=== PATIENT | female | born 1985 | race Caucasian/White ===

== ENCOUNTER 2018-08-28 17:31 | Emergency (ER) | payer BC, SELFPAY ==
[2018-08-28 17:32] VITALS: BP 129/77; PULSE 109; RESP 17; TEMP 36.8; O2SAT 97; BMI 37.1
--- NOTE | 2018-08-28 17:41 | ED.VISSUMM ---
- ER Visit Summary Date of Service: 08/28/18 Chief Complaint: Fever, chills, myalgias History of Present Illness: The patient is a 32 F presents to the emergency department fever, chills, myalgias. Patient symptoms began 48 hours ago. States she started with mild runny nose. Since then, she has had worsening fevers, chills, myalgias. She describes diffuse body aches. She had a scant nonproductive cough. She states that she has had some increasing nasal drainage, ear pressure and facial fullness. She has been taking ibuprofen which controls the fever, but then it comes back. Patient is otherwise healthy. She takes no daily medications. She has no history of immunosuppression. She does smoke. Physical Examination: Vital signs reviewed General: Well-nourished, well-developed Head: Normocephalic, atraumatic Eyes: Pupils equal and reactive, extraocular muscles intact Neck, supple, no lymphadenopathy Heart: Regular rate and rhythm Respiratory: No distress, clear bilaterally Abdomen: Soft, nontender, nondistended, no peritoneal signs Back: Nontender Extremities: Nontender, no edema, no cords Skin: Normal color no rash Neuro: Alert and oriented, no focal or lateralizing deficits Test Results: [] Emergency Department Course and Treatment: The patient has symptoms that are consistent with influenza. She was not hypoxic. She was given fluids and Tylenol. Rapid flu was obtained and was positive. Chest x-ray shows no evidence of focal infiltrate. At this time, I do feel the patient is safe for outpatient therapy. She is within the window for treatment with Tamiflu. I did discuss this with the patient she was agreeable. She will be started on Tamiflu. She was counseled on supportive care. At this time, I do feel that she is safe for discharge. She will return with any worsening symptoms. Treatment Plan: [] Disposition: [] Impression: Influenza This note was generated with Chat& (ChatAnd) dictation software. It may contain incorrect words, spelling, and punctuation that were not noted in review of the chart prior to signing ED Disposition - Plan for ED Patient: Chief Complaint: Fever Instructions: ED Flu Prescriptions: Oseltamivir Phosphate [Tamiflu] 75 mg PO BID #10 cap Referrals: Román Ling MD [Primary Care Provider] -
[2018-08-28] MEDS: Acetaminophen 500 MG Tablet 1000 MG PO (18:03)
[2018-08-28] MEDS: 0.9% Normal Saline 1,000 ML 1000 ML IV (18:04)
--- NOTE | 2018-08-28 18:16 | RAD_ITS ---
STUDY: X-RAY CHEST REASON FOR EXAM: Female, 32 years old. Fever TECHNIQUE: Frontal and lateral views of the chest. COMPARISON: None. FINDINGS: The lungs are clear and expanded. There is no demonstrated pleural abnormality. Normal size heart. Normal mediastinum and kymberly. Normal visualized pulmonary arteries. Normal visualized aortic arch and descending thoracic aorta. Normal visualized thoracic spine. Normal visualized ribs, clavicles, and shoulders. There is no demonstrated abnormality of the visualized soft tissue structures of the upper abdomen. RAD/Chest PA and Lateral IMPRESSION: Normal x-ray examination of the chest. Electronically Signed: Ken Holly MD at 19:23 EST , Service support ,
--- NOTE | 2018-08-28 18:16 | ED.RN ---
LAB CALLS WITH CRITICAL RESULT, FLU A POSITIVE, DR. RAMIREZ MADE AWARE.
[2018-08-28] MEDS: Oseltamivir Phosphate 75 MG Capsule PO (18:32)
[2018-08-28 18:58] VITALS: PULSE 88; RESP 14
--- OUTSIDE RECORDS SUMMARY | 2018-10-31 12:07 | XMS RPT_ITS ---
:1985 Author Organization [facility] Care Team Providers Name Role Phone HARLEEN FUCHS Attending Unavailable Brian Martin Attending Unavailable Harleen Fuchs Primary Care Unavailable PROBLEMS PROBLEMS No Problem Records FoundPROCEDURES PROCEDURES No Procedure Records FoundRESULTS RESULTS PROGRESS Observed: 08/31/2018 Status: COMPLETED Source: [facility] 11:48 AM [facility] REPOSITORY HNO ID: [id number] Author: Harleen Fuchs Service: (none) Author Type: Physician Type: Progress Notes Filed: 08/31/2018 11:55 AM Note Text: Patient presents with: Viral Syndrome HPI: Patient presents today for office visit for ER follow up. Nursing Notes: Marli Hutchinson LPN 08/31/2018 11:42 AM Signed HOSPITAL/ER FOLLOW UP: Reason for visit: fever, body aches Which facility: [facility] Date of visit: 08/28/18 Diagnosis: Influenza A Testing done: chest x-ray, rapid flu Treatment given: Tamiflu Current symptoms: congestion Has FMLA that needs completed for work. Off work 08/26/18 return to work 09/01/18. Was having fever and myalgias. Rapid flu was positive. Not feeling perfect but is much better now. No cough or shortness of breath. Has a lot of congestion and mild left ear pain. MEDICATIONS: Current Outpatient Prescriptions: fluticasone (FLONASE) 50 mcg/actuation nasal spray Use 1 [place] in each nostril once daily. cyclobenzaprine (FLEXERIL) 10 mg tablet Take 1 tablet by mouth three times daily as needed for Muscle Spasm. albuterol HFA (PROAIR HFA) 90 mcg/actuation inhaler Inhale 2 Puffs as instructed every 4 hours as needed for Wheezing/Shortness of Breath. ibuprofen (MOTRIN) 800 mg tablet Take 1 tablet by mouth every 8 hours as needed for Pain. Take with food. No current facility-administered medications for this visit. ALLERGIES: ALLERGIES No Known Allergies PAST MEDICAL HISTORY Diagnosis Date - Abnormal pap - HPV test positive - Migraines PAST SURGICAL HISTORY Procedure Laterality Date - LAPAROSCOPIC CHOLEYCYSTECTOMY Cholecystectomy, lap FAMILY HISTORY Problem Relation Age of Onset - Hypertension Father - Diabetes Maternal Grandmother Social History Marital status: Spouse name: Zia Years of education: Number of children: 2 Social History Main Topics Smoking status: Current Every Day Smoker Packs/day: 1.00 Years: 0.00 Types: Cigarettes Smokeless tobacco: Never Used Comment: has tried wellbutrin in the past Alcohol use: No Drug use: No Sexual activity: Yes Reviewed current medications, allergies, past medical history, surgical history, family history and social history today. REVIEW OF SYSTEMS All other reviewed and negative other than HPI. HEALTH MAINTENANCE: Reviewed health maintenance issues today and recommended the following in detail. VITALS: BP 118/62 Pulse 80 Temp 36.9 ?C (98.4 ?F) (Tympanic) Resp 18 Wt 102.5 kg (226 lb) BMI 35.93 kg/m? Last 4 Encounter Wt Readings: Date: Wt: 08/31/2018 102.5 kg (226 lb) 12/13/2016 102.1 kg (225 lb) 06/30/2016 101.2 kg (223 lb) 01/19/2016 98 kg (216 lb) PHYSICAL EXAMINATION: General appearance: Well appearing, alert, in no acute distress, well-hydrated, well nourished. Skin: Skin color, texture, turgor normal, no suspicious rashes or lesions Head: Normocephalic, no masses, lesions, tenderness or abnormalities Eyes: Anicteric sclera. Pupils are equally round and reactive to light. Extraocular movements are intact. Ears: External ears normal, canals clear Nose/Sinuses: Nares normal, septum midline, mucosa normal, no drainage or sinus tenderness Oropharynx: Lips, mucosa, and tongue normal, teeth and gums normal, oropharynx normal Neck: Supple, no adenopathy; Lungs: lungs clear to auscultation. No wheezing, rhonchi, rales Heart: RRR without murmur, gallop, or rubs. No ectopy Abdomen: Normal abdominal exam, Abdomen soft, non-tender. Bowel sounds normal. No masses, organomegaly Extremities: No deformities, edema, skin discoloration, clubbing or cyanosis. Good capillary refill. Musculoskeletal: No joint swelling, deformity, or tenderness ASSESSMENT/PLAN: 1. Influenza A - ICD9: 487.1, ICD10: J10.1 - finish tamiflu. discusssed annual flu shot. Red flags for re-assessment reviewed with patient in detail. - ok to return to work in am. Forms completed. Harleen Fuchs MD RTO i prn. CNOV Observed: 08/31/2018 Status: COMPLETED Source: [place] 11:00 AM [facility] RE[facility]ITORY [facility] INDIA DEWITT ([id number]) 1985 F Date Time Provider Department 08/31/18 11:00 AM HARLEEN FUCHS During your visit today, we recorded the following information about you: Temperature Pulse Respiration Blood pressure 98.4 degrees 80/minute 18/minute 118/62 Weight 102.5 kg Marli Hutchinson LPN 08/31/2018 11:42 AM Signed HOSPITAL/ER FOLLOW UP: Reason for visit: fever, body aches Which facility: [facility] Date of visit: 08/28/18 Diagnosis: Influenza A Testing done: chest x-ray, rapid flu Treatment given: Tamiflu Current symptoms: congestion Has FMLA that needs completed for work. Off work 08/26/18 return to work 09/01/18. Harleen Fuchs MD 08/31/2018 11:55 AM Signed Patient presents with: Viral Syndrome HPI: Patient presents today for office visit for ER follow up. Nursing Notes: Marli Hutchinson LPN 08/31/2018 11:42 AM Signed HOSPITAL/ER FOLLOW UP: Reason for visit: fever, body aches Which facility: [facility] Date of visit: 08/28/18 Diagnosis: Influenza A Testing done: chest x-ray, rapid flu Treatment given: Tamiflu Current symptoms: congestion Has FMLA that needs completed for work. Off work 08/26/18 return to work 09/01/18. Was having fever and myalgias. Rapid flu was positive. Not feeling perfect but is much better now. No cough or shortness of breath. Has a lot of congestion and mild left ear pain. MEDICATIONS: Current Outpatient Prescriptions: fluticasone (FLONASE) 50 mcg/actuation nasal spray Use 1 [place] in each nostril once daily. cyclobenzaprine (FLEXERIL) 10 mg tablet Take 1 tablet by mouth three times daily as needed for Muscle Spasm. albuterol HFA (PROAIR HFA) 90 mcg/actuation inhaler Inhale 2 Puffs as instructed every 4 hours as needed for Wheezing/Shortness of Breath. ibuprofen (MOTRIN) 800 mg tablet Take 1 tablet by mouth every 8 hours as needed for Pain. Take with food. No current facility-administered medications for this visit. ALLERGIES: ALLERGIES No Known Allergies PAST MEDICAL HISTORY Diagnosis Date - Abnormal pap - HPV test positive - Migraines PAST SURGICAL HISTORY Procedure Laterality Date - LAPAROSCOPIC CHOLEYCYSTECTOMY Cholecystectomy, lap FAMILY HISTORY Problem Relation Age of Onset - Hypertension Father - Diabetes Maternal Grandmother Social History Marital status: Spouse name: Zia Years of education: Number of children: 2 Social History Main Topics Smoking status: Current Every Day Smoker Packs/day: 1.00 Years: 0.00 Types: Cigarettes Smokeless tobacco: Never Used Comment: has tried wellbutrin in the past Alcohol use: No Drug use: No Sexual activity: Yes Reviewed current medications, allergies, past medical history, surgical history, family history and social history today. REVIEW OF SYSTEMS All other reviewed and negative other than HPI. HEALTH MAINTENANCE: Reviewed health maintenance issues today and recommended the following in detail. VITALS: BP 118/62 Pulse 80 Temp 36.9 ?C (98.4 ?F) (Tympanic) Resp 18 Wt 102.5 kg (226 lb) BMI 35.93 kg/m? Last 4 Encounter Wt Readings: Date: Wt: 08/31/2018 102.5 kg (226 lb) 12/13/2016 102.1 kg (225 lb) 06/30/2016 101.2 kg (223 lb) 01/19/2016 98 kg (216 lb) PHYSICAL EXAMINATION: General appearance: Well appearing, alert, in no acute distress, well-hydrated, well nourished. Skin: Skin color, texture, turgor normal, no suspicious rashes or lesions Head: Normocephalic, no masses, lesions, tenderness or abnormalities Eyes: Anicteric sclera. Pupils are equally round and reactive to light. Extraocular movements are intact. Ears: External ears normal, canals clear Nose/Sinuses: Nares normal, septum midline, mucosa normal, no drainage or sinus tenderness Oropharynx: Lips, mucosa, and tongue normal, teeth and gums normal, oropharynx normal Neck: Supple, no adenopathy; Lungs: lungs clear to auscultation. No wheezing, rhonchi, rales Heart: RRR without murmur, gallop, or rubs. No ectopy Abdomen: Normal abdominal exam, Abdomen soft, non-tender. Bowel sounds normal. No masses, organomegaly Extremities: No deformities, edema, skin discoloration, clubbing or cyanosis. Good capillary refill. Musculoskeletal: No joint swelling, deformity, or tenderness ASSESSMENT/PLAN: 1. Influenza A - ICD9: 487.1, ICD10: J10.1 - finish tamiflu. discusssed annual flu shot. Red flags for re-assessment reviewed with patient in detail. - ok to return to work in am. Forms completed. Harleen Fuchs MD RTO i prn. Referring Provider: SELF [[id number]] Allergies As of Date: 08/31/2018 (No Known Allergies) Date Reviewed: 08/31/2018 Reviewed by: Marli Hutchinson LPN - Fully Assessed Reason for Visit: Viral Syndrome [119] Primary Visit Diagnosis:Influenza A [J10.1] Prescriptions as of 08/31/2018 Sig: FLUTICASONE 50 MCG/ACTUATION * Use 1 [place] in each nostril o* CYCLOBENZAPRINE 10 MG TABLET Take 1 tablet by mouth three * ALBUTEROL SULFATE HFA 90 MCG/* Inhale 2 Puffs as instructed * IBUPROFEN 800 MG TABLET Take 1 tablet by mouth every * Problem List As Of Date 08/31/2018 Noted Resolved Migraine [G43.909] INVALID FOR* Visit Notes: >> Marli Hutchinson LPN WedAug 31, 2018 11:29 AM Status: Signed HOSPITAL/ER FOLLOW UP: Reason for visit: fever, body aches Which facility: [facility] Date of visit: 08/28/18 Diagnosis: Influenza A Testing done: chest x-ray, rapid flu Treatment given: Tamiflu Current symptoms: congestion Has FMLA that needs completed for work. Off work 08/26/18 return to work 09/01/18. Letter Text Harleen Fuchs MD [address], [place] [address] 08/31/2018 TO WHOM IT MAY CONCERN: This is to confirm that India Dewitt had an appointment and was seen at the [facility] in the Department of Family Medicine by Harleen Fuchs MDon 08/31/2018 and may return to work on 09/01/18. Sincerely yours, Harleen Fuchs MD Encounter Status:Closed by HARLEEN FUCHS MD on 08/31/18 EMERGENCY DEPARTMENT Observed: 08/28/2018 Status: F Source: [facility] SUMMARY 6:49 PM [facility] REPOSITORY [facility] Medical Records Department [address] [place] [address] Emergency Department Summary 08/28/18 1741 MR#: [id number] Acct: [id number] Name: INDIA DEWITT Rep #: [id number] : 1985 32 From: Brian Martin MD PCP: Harleen Fuchs MD Status: REG ER - ER Visit Summary Date of Service: 08/28/18 Chief Complaint: Fever, chills, myalgias History of Present Illness: The patient is a 32 F presents to the emergency department fever, chills, myalgias. Patient symptoms began 48 hours ago. States she started with mild runny nose. Since then, she has had worsening fevers, chills, myalgias. She describes diffuse body aches. She had a scant nonproductive cough. She states that she has had some increasing nasal drainage, ear pressure and facial fullness. She has been taking ibuprofen which controls the fever, but then it comes back. Patient is otherwise healthy. She takes no daily medications. She has no history of immunosuppression. She does smoke. Physical Examination: Vital signs reviewed General: Well-nourished, well-developed Head: Normocephalic, atraumatic Eyes: Pupils equal and reactive, extraocular muscles intact Neck, supple, no lymphadenopathy Heart: Regular rate and rhythm Respiratory: No distress, clear bilaterally Abdomen: Soft, nontender, nondistended, no peritoneal signs Back: Nontender Extremities: Nontender, no edema, no cords Skin: Normal color no rash Neuro: Alert and oriented, no focal or lateralizing deficits Test Results: [] Emergency Department Course and Treatment: The patient has symptoms that are consistent with influenza. She was not hypoxic. She was given fluids and Tylenol. Rapid flu was obtained and was positive. Chest x-ray shows no evidence of focal infiltrate. At this time, I do feel the patient is safe for outpatient therapy. She is within the window for treatment with Tamiflu. I did discuss this with the patient she was agreeable. She will be started on Tamiflu. She was counseled on supportive care. At this time, I do feel that she is safe for discharge. She will return with any worsening symptoms. Treatment Plan: [] Disposition: [] Impression: Influenza This note was generated with [employer] dictation software. It may contain incorrect words, spelling, and punctuation that were not noted in review of the chart prior to signing ED Disposition - Plan for ED Patient: Chief Complaint: Fever Instructions: ED Flu Prescriptions: Oseltamivir Phosphate [Tamiflu] 75 mg PO BID #10 cap Referrals: Harleen Fuchs MD [Primary Care Provider] - What to do if you have Problems For any increased pain, shortness of breath, bleeding, nausea or vomiting, chest pain, or any unexpected problems, contact your Primary Care Provider. Call [facility] ([phone]) or report to the closest Emergency Room. Call 911 if necessary. 08/28/18 8904 <Electronically signed by Brian Martin MD> Date Brian Martin MD Cosigner Signature (If Indicated): Date CC: Harleen Fuchs MD Observed: 08/28/2018 Status: F Source: [facility] INFLUENZA A+B (RAPID 5:46 PM [facility]) REPOSITORY FLU A/B Rapid Negative test results should be confirmed with FLU PANEL MOLECULAR if indicated. CRITICAL VALUE VERIFIED. CALLED TO YELITZA IN ED 08/28/18 1815 Joselin Craig. RESULTS READ BACK BY SAME . Influenza Ag, Direct POSITIVE for the presence of INFLUENZA A Antigen only Performed By: #### M101.0101 #### [facility] [address] [place], [address] CHEST PA AND LATERAL Observed: 08/28/2018 Status: F Source: [place] 5:40 PM [facility] REPOSITORY [facility] Imaging Services [address] [place] [address] Chest PA and Lateral MR#: [id number] Acct: [id number] Name: INDIA DEWITT Rep #: [id number] : 1985 F 32 From: Ken Holly MD PCP: Harleen Fuchs MD Status: DEP ER Study: Chest PA and Lateral Date of Exam: 08/28/18 Exam# [id number] Ordering Dr: Brian Martin MD STUDY: X-RAY CHEST REASON FOR EXAM: Female, 32 years old. Fever TECHNIQUE: Frontal and lateral views of the chest. COMPARISON: None. FINDINGS: The lungs are clear and expanded. There is no demonstrated pleural abnormality. Normal size heart. Normal mediastinum and kymberly. Normal visualized pulmonary arteries. Normal visualized aortic arch and descending thoracic aorta. Normal visualized thoracic spine. Normal visualized ribs, clavicles, and shoulders. There is no demonstrated abnormality of the visualized soft tissue structures of the upper abdomen. RAD/Chest PA and Lateral IMPRESSION: Normal x-ray examination of the chest. Electronically Signed: Ken Holly MD at 19:23 EST , Service support , CC: Brian Martin MD; Harleen Fuchs MD Early Childhood Education Specialist: Signed ALLERGIES ALLERGIES DATE TYPE / CODE NAME / CODE REACTION SEVERITY SOURCE 08/28/2018 Drug No Known Unknown [facility] Allergy/416 Allergies/[id number] Hospital 328461(SNOM 0388(RXNORM) Repository ED CT) Drug NO KNOWN [facility] Class/49927 ALLERGIES Main [place] 1003(SNOMED Repository CT) ENCOUNTERS ENCOUNTERS ADMIT/DISCHARGE ACCOUNT ADMITTING ENCOUNTER LOCATION SOURCE NUMBER CLASS 08/31/2018/09/01/19 [id number] Ambulatory [address] Repository 08/28/2018/08/28/19 [id number] Emergency [place] [address] ing:ED Repository PAYERS PAYERS ENCOUNTER GUARANTOR PAYER SUBSCRIBER SOURCE 08/28/2018 [place] Primary ZIA Yanez [id number] Insurance:ANTHEMPolic GRAVESDOB: [facility] Number: [id number] [address]Hoh: (888) [id number] Repository [phone] () glenn Date:[id number], [place] [address]IA: 08/28/2018 Secondary NOT GIVENUNK [place] Insurance:SELF PAY [facility] Number: Effective Repository Date:2018-08-28
== END 2018-08-28 18:58 | disposition home or self-care (01) ==
LOC: ED 18:02
PROVIDERS: Emergency Provider Emergency Medicine; Family Provider Family Medicine; PCP Family Medicine
DX: J11.1 Influenza due to unidentified influenza virus with other respiratory manifestations (principal); F17.200 Nicotine dependence, unspecified, uncomplicated
CPT/HCPCS: 71046; 87804; 96360; 99284; J7030; A4216